=== PATIENT | female | born 1975 | race African-American/Black ===

== ENCOUNTER 2022-10-05 13:59 | Outpatient (CLI) | payer BC | END 2022-10-05 14:00 | disposition home or self-care (01) | LOC: CSHMRI 13:59 | PROVIDERS: ATTEND Orthopaedic Surgery Hand Surgery | DX: S66.811A Strain of other specified muscles, fascia and tendons at wrist and hand level, right hand, initial encounter (principal); M62.89 Other specified disorders of muscle ==

== ENCOUNTER 2023-10-26 10:13 | Outpatient (CLI) | payer BC | END 2023-10-26 10:14 | disposition home or self-care (01) | LOC: CSHMAMMO 10:13 | PROVIDERS: ATTEND Obstetrics & Gynecology | DX: Z12.31 Encounter for screening mammogram for malignant neoplasm of breast (principal); Z80.3 Family history of malignant neoplasm of breast | CPT/HCPCS: 77063; 77067 ==